=== PATIENT | male | born 1970 | race African-American/Black ===

== ENCOUNTER 2021-07-31 07:42 | Inpatient (IN) | payer MEDICAID, OTHER ==
[~2021-07-31] VITALS: Ht 182.9 cm; Wt 76.8 kg
[2021-07-31 08:15] LABS: Basophils # (auto) 0.1 10 ^3/uL (0-0.2); Eosinophils # (auto) 0.2 10 ^3/uL (0-0.8)
[2021-07-31 08:17] LABS: Eosinophils % (auto) 1.6 % (0.0-7.0); Hematocrit 38.2 % (41.0-53.0); Hemoglobin 12.8 g/dL (13.5-17.5); Lymphocytes # (auto) 1.7 10 ^3/uL (0.4-5.4); Lymphocytes % (auto) 15.6 % (10.0-50.0); Mean Corpuscular Hemoglobin 32.9 pg (28.0-32.0); Mean Corpuscular Hgb Conc. 33.4 g/dL (32.0-36.0); Mean Corpuscular Volume 98.5 fL (80.0-100.0); Monocytes # (auto) 1.2 10 ^3/uL (0-1.3); Monocytes % (auto) 10.7 % (0.0-12.0); Neutrophils # (auto) 7.7 10 ^3/uL (1.6-8.6); Neutrophils % (auto) 71.1 % (37.0-80.0); Red Blood Cells 3.88 10^6/uL (4.5-5.90); Red Cell Distribution Width 15.2 % (11.8-14.3); White Blood Cell 10.8 10^3/uL (4.4-10.8)
[2021-07-31] MEDS ORDERED: FUROSEMIDE 40 MG/4 ML VIAL IV ONE (08:30)
[2021-07-31] MEDS ORDERED: SODIUM CHLORIDE 0.9% 1,000 ML IV ONE (08:30)
[2021-07-31] MEDS ORDERED: SPIRONOLACTONE 25 MG TAB PO ONE (08:30)
[2021-07-31] MEDS ORDERED: ALBUTEROL SULF 2.5 MG/0.5ML(0.5%) NEB SOLN NEB ONE (08:30)
[2021-07-31] MEDS ORDERED: IPRATROPIUM BROM 0.5 MG/2.5ML INH SOL NEB ONE (08:30)
[2021-07-31 08:44] LABS: Albumin 2.9 g/dL (3.4-5.0); Calcium 9.2 mg/dL (8.5-10.1); Potassium 4.7 mmol/L (3.5-5.1)
[2021-07-31] MEDS ORDERED: SPIRONOLACTONE 25 MG TAB ONE (08:46)
[2021-07-31] MEDS ORDERED: FUROSEMIDE 40 MG/4 ML VIAL ONE (08:46)
[2021-07-31 08:48] LABS: Bilirubin, Total 0.3 mg/dL (0.2-1.0); Total Protein 8.4 g/dL (6.4-8.2)
[2021-07-31 08:56] LABS: BUN/Creatinine Ratio 8.2
[2021-07-31 08:56] LABS: Urine Bacteria NONE SEEN /hpf (None Seen); Urine Blood Negative /uL (Negative); Urine Specific Gravity 1.003 (1.001-1.035); Urine WBC <1 /hpf (0 - 3)
[2021-07-31 09:06] LABS: Lactic Acid w/Reflex 2.8 mmol/L (0.4-2.0)
[2021-07-31] MEDS ORDERED: IPRATROPIUM BROM 0.5 MG/2.5ML INH SOL ONE (09:20)
[2021-07-31] MEDS ORDERED: ALBUTEROL SULF 2.5 MG/0.5ML(0.5%) NEB SOLN ONE (09:20)
[2021-07-31] MEDS ORDERED: IOHEXOL 350 MG/ML 100ML IJ ONE (10:09)
[2021-07-31] MEDS ORDERED: MORPHINE SULFATE INJ 2 MG/ml SYRG IV ONE (12:00)
[2021-07-31] MEDS ORDERED: ONDANSETRON HCL 4 MG/2 ML VIAL IV ONE (12:00)
[2021-07-31] MEDS ORDERED: NITROGLYCERIN 0.4 MG SL TAB SL PRN (15:00)
[2021-07-31] MEDS ORDERED: MORPHINE SULFATE INJ 2 MG/ml SYRG IV PRN (15:00)
[2021-07-31] MEDS ORDERED: hydrALAZINE HCL 20 MG/ML VL IV PRN (15:15)
[2021-07-31] MEDS ORDERED: AZITHROMYCIN 500MG/ 250ML 250 ML IV ONE (15:15)
[2021-07-31] MEDS ORDERED: ALBUTEROL SULF 2.5 MG/0.5ML(0.5%) NEB SOLN NEB PRN (15:15)
[2021-07-31 15:41] LABS: Cholesterol 135 mg/dL (< 200); Triglycerides 222 mg/dL (< 150)
[2021-07-31 15:44] LABS: HDL Cholesterol 31 mg/dL (40-59); LDL Cholesterol 79 mg/dL (< 100)
[2021-07-31 16:11] LABS: Alcohol, Urine < 3.0 mg/dL (0-10); Amphetamine Screen, Urine NEGATIVE (NEGATIVE); Barbiturate Scree,Urine NEGATIVE (NEGATIVE); Benzodiazephine Screen, Urine NEGATIVE (NEGATIVE); Cannabinoid Screen, Urine NEGATIVE (NEGATIVE); Cocaine Screen, Urine NEGATIVE (NEGATIVE); Opiate Scree,Urine NEGATIVE (NEGATIVE); Phencyclidine Screen, Urine NEGATIVE (NEGATIVE)
[2021-07-31 17:20] VITALS: BP 123/92
[2021-07-31] MEDS: MORPHINE SULFATE INJ 2 MG/ml SYRG IV PRN (17:56)
[2021-07-31 18:13] VITALS: BP 123/92
[2021-07-31] MEDS ORDERED: DOXY100C2 PO (19:43)
[2021-07-31 22:00] VITALS: BP 122/91
[2021-08-01] MEDS: MORPHINE SULFATE INJ 2 MG/ml SYRG IV PRN ×4 (04:59→23:11)
[2021-08-01 05:00] VITALS: BP 131/90
[2021-08-01 06:08] LABS: Albumin 2.7 g/dL (3.4-5.0); Calcium 9.1 mg/dL (8.5-10.1); Potassium 4.5 mmol/L (3.5-5.1)
[2021-08-01 06:10] LABS: Basophils # (auto) 0 10 ^3/uL (0-0.2); Basophils % (auto) 0.4 % (0.0-2.0); Eosinophils # (auto) 0.2 10 ^3/uL (0-0.8); Monocytes # (auto) 1.3 10 ^3/uL (0-1.3); Nucleated Red Blood Cells % 0.1 %; Red Cell Distribution Width 14.8 % (11.8-14.3); White Blood Cell 10.8 10^3/uL (4.4-10.8)
[2021-08-01 06:12] LABS: BUN/Creatinine Ratio 10.8; Bilirubin, Total 0.6 mg/dL (0.2-1.0); Total Protein 7.7 g/dL (6.4-8.2)
[2021-08-01 06:14] LABS: Eosinophils % (auto) 1.8 % (0.0-7.0); Lymphocytes # (auto) 1.7 10 ^3/uL (0.4-5.4); Lymphocytes % (auto) 15.7 % (10.0-50.0); Monocytes % (auto) 12.1 % (0.0-12.0); Neutrophils # (auto) 7.5 10 ^3/uL (1.6-8.6)
[2021-08-01 06:47] LABS: Red Blood Cells 3.68 10^6/uL (4.5-5.90)
[2021-08-01 06:48] LABS: Hematocrit 35.7 % (41.0-53.0); Hemoglobin 12.7 g/dL (13.5-17.5); Mean Corpuscular Hemoglobin 34.6 pg (28.0-32.0); Mean Corpuscular Hgb Conc. 35.7 g/dL (32.0-36.0); Mean Corpuscular Volume 97.1 fL (80.0-100.0)
[2021-08-01 08:00] VITALS: BP 108/88
[2021-08-01] MEDS: AZITHROMYCIN 500MG/ 250ML 250 ML IV SCH (09:54)
[2021-08-01 12:00] VITALS: BP 125/77
[2021-08-01] MEDS: ONDANSETRON HCL 4 MG/2 ML VIAL IV PRN ×2 (14:47→22:53)
[2021-08-01 16:00] VITALS: BP 114/88
[2021-08-01 22:00] VITALS: BP 122/87
[2021-08-01] MEDS: methylPREDNISolone SOD SUCC 40 MG/ML VL IV SCH (22:41)
[2021-08-02] MEDS: MORPHINE SULFATE INJ 2 MG/ml SYRG IV PRN (03:12)
[2021-08-02 05:00] VITALS: BP 103/80
[2021-08-02 05:10] LABS: Basophils # (auto) 0.2 10 ^3/uL (0-0.2); Eosinophils # (auto) 0 10 ^3/uL (0-0.8); Eosinophils % (auto) 0.2 % (0.0-7.0); Hemoglobin 13.4 g/dL (13.5-17.5); Lymphocytes # (auto) 0.9 10 ^3/uL (0.4-5.4); Lymphocytes % (auto) 7.8 % (10.0-50.0); Mean Corpuscular Hemoglobin 33.7 pg (28.0-32.0); Mean Corpuscular Hgb Conc. 34.5 g/dL (32.0-36.0); Mean Corpuscular Volume 97.6 fL (80.0-100.0); Monocytes # (auto) 0.3 10 ^3/uL (0-1.3); Monocytes % (auto) 2.7 % (0.0-12.0); Neutrophils # (auto) 10.4 10 ^3/uL (1.6-8.6); Neutrophils % (auto) 87.3 % (37.0-80.0); Red Blood Cells 3.99 10^6/uL (4.5-5.90); Red Cell Distribution Width 15.2 % (11.8-14.3); White Blood Cell 11.9 10^3/uL (4.4-10.8)
[2021-08-02 05:28] LABS: BUN/Creatinine Ratio 12.7; Calcium 9.5 mg/dL (8.5-10.1)
[2021-08-02 08:00] VITALS: BP 111/62
[2021-08-02 09:00] VITALS: BP 110/81
[2021-08-02 09:22] LABS: INR 1.1 (0.9-1.15); Partial Thromboplastin Time 27.8 sec (23.6-33.0)
[2021-08-02] MEDS: AZITHROMYCIN 500MG/ 250ML 250 ML IV SCH (11:01)
[2021-08-02] MEDS: methylPREDNISolone SOD SUCC 40 MG/ML VL IV SCH ×2 (11:01→22:25)
[2021-08-02 13:00] VITALS: BP 111/62
[2021-08-02 20:00] VITALS: BP 111/62
[2021-08-02 22:00] VITALS: BP 143/85
[2021-08-03 05:00] VITALS: BP 106/73
[2021-08-03 05:09] LABS: Basophils # (auto) 0.1 10 ^3/uL (0-0.2); Basophils % (auto) 0.4 % (0.0-2.0); Eosinophils # (auto) 0 10 ^3/uL (0-0.8); Eosinophils % (auto) 0.1 % (0.0-7.0); Hematocrit 38.4 % (41.0-53.0); Lymphocytes % (auto) 7.7 % (10.0-50.0); Mean Corpuscular Hemoglobin 33.4 pg (28.0-32.0); Mean Corpuscular Hgb Conc. 33.9 g/dL (32.0-36.0); Mean Corpuscular Volume 98.4 fL (80.0-100.0); Monocytes # (auto) 0.8 10 ^3/uL (0-1.3); Monocytes % (auto) 6.1 % (0.0-12.0); Neutrophils # (auto) 11.6 10 ^3/uL (1.6-8.6); Neutrophils % (auto) 85.7 % (37.0-80.0); Nucleated Red Blood Cells % 0.1 %; White Blood Cell 13.6 10^3/uL (4.4-10.8)
[2021-08-03 05:16] LABS: BUN/Creatinine Ratio 14.4; Calcium 9.6 mg/dL (8.5-10.1)
[2021-08-03 09:00] VITALS: BP 146/95
[2021-08-03] MEDS: methylPREDNISolone SOD SUCC 40 MG/ML VL IV SCH ×2 (10:20→21:21)
[2021-08-03] MEDS: AZITHROMYCIN 500MG/ 250ML 250 ML IV SCH (10:21)
[2021-08-03 13:00] VITALS: BP 120/80
[2021-08-03] MEDS ORDERED: MIDAZOLAM HCL 2MG/2ML 2ml VIAL (1mg/ml) ONE (15:52)
[2021-08-03] MEDS ORDERED: fentaNYL CITRATE 100 MCG/2 ML VL ONE (15:52)
[2021-08-03] MEDS ORDERED: LIDOCAINE 2%HCL (LOCAL ANESTH.) INJ 10ml MDV ONE (15:53)
[2021-08-03] MEDS ORDERED: ceFAZolin 1GM/50ML 50 ML IV ONE (16:32)
[2021-08-03 20:00] VITALS: BP 127/99
[2021-08-03] MEDS: ceFAZolin 1GM/50ML 50 ML IV SCH (21:21)
[2021-08-03 22:00] VITALS: BP 111/79
[2021-08-03 23:00] VITALS: BP 123/87
[2021-08-04] VITALS (22 sets, daily range): BP systolic 99–163; BP diastolic 68–98
[2021-08-04 05:03] LABS: Basophils # (auto) 0.2 10 ^3/uL (0-0.2); Eosinophils # (auto) 0 10 ^3/uL (0-0.8); Hemoglobin 15.5 g/dL (13.5-17.5); Lymphocytes # (auto) 0.9 10 ^3/uL (0.4-5.4); Lymphocytes % (auto) 5.6 % (10.0-50.0); Mean Corpuscular Hemoglobin 33.6 pg (28.0-32.0); Mean Corpuscular Hgb Conc. 34.5 g/dL (32.0-36.0); Mean Corpuscular Volume 97.3 fL (80.0-100.0); Monocytes % (auto) 5.9 % (0.0-12.0); Neutrophils # (auto) 14.3 10 ^3/uL (1.6-8.6); Neutrophils % (auto) 87.5 % (37.0-80.0); Red Blood Cells 4.62 10^6/uL (4.5-5.90); Red Cell Distribution Width 14.7 % (11.8-14.3); White Blood Cell 16.3 10^3/uL (4.4-10.8)
[2021-08-04 05:16] LABS: BUN/Creatinine Ratio 17.6; Calcium 9.6 mg/dL (8.5-10.1); Potassium 4.9 mmol/L (3.5-5.1)
[2021-08-04] MEDS: ceFAZolin 1GM/50ML 50 ML IV SCH ×3 (05:55→22:03)
[2021-08-04] MEDS: MORPHINE SULFATE INJ 2 MG/ml SYRG IV PRN ×3 (08:55→20:02)
[2021-08-04] MEDS ORDERED: ENOXAPARIN SOD 40 MG/0.4 ML SYRINGE SC ONE (10:15)
[2021-08-04] MEDS: methylPREDNISolone SOD SUCC 40 MG/ML VL IV SCH ×2 (10:20→22:02)
[2021-08-04] MEDS: AZITHROMYCIN 500MG/ 250ML 250 ML IV SCH (10:20)
[2021-08-04] MEDS: ONDANSETRON HCL 4 MG/2 ML VIAL IV PRN (20:02)
[2021-08-05] VITALS (17 sets, daily range): BP systolic 114–195; BP diastolic 65–125
[2021-08-05] MEDS: MORPHINE SULFATE INJ 2 MG/ml SYRG IV PRN ×2 (02:48→08:49)
[2021-08-05 04:57] LABS: Basophils # (auto) 0 10 ^3/uL (0-0.2); Basophils % (auto) 0.2 % (0.0-2.0); Eosinophils # (auto) 0 10 ^3/uL (0-0.8); Hematocrit 46.2 % (41.0-53.0); Hemoglobin 15.6 g/dL (13.5-17.5); Lymphocytes # (auto) 1.2 10 ^3/uL (0.4-5.4); Lymphocytes % (auto) 9.3 % (10.0-50.0); Mean Corpuscular Hemoglobin 33.1 pg (28.0-32.0); Mean Corpuscular Hgb Conc. 33.7 g/dL (32.0-36.0); Mean Corpuscular Volume 98.2 fL (80.0-100.0); Monocytes # (auto) 0.9 10 ^3/uL (0-1.3); Neutrophils # (auto) 10.4 10 ^3/uL (1.6-8.6); Neutrophils % (auto) 83.5 % (37.0-80.0); Nucleated Red Blood Cells % 0.2 %; Red Blood Cells 4.71 10^6/uL (4.5-5.90); Red Cell Distribution Width 14.6 % (11.8-14.3); White Blood Cell 12.4 10^3/uL (4.4-10.8)
[2021-08-05 05:09] LABS: BUN/Creatinine Ratio 19.2; Calcium 9.1 mg/dL (8.5-10.1)
[2021-08-05] MEDS: ceFAZolin 1GM/50ML 50 ML IV SCH ×3 (05:55→21:49)
[2021-08-05] MEDS: AZITHROMYCIN 500MG/ 250ML 250 ML IV SCH (10:23)
[2021-08-05] MEDS: methylPREDNISolone SOD SUCC 40 MG/ML VL IV SCH ×2 (10:23→21:49)
[2021-08-05] MEDS: ENOXAPARIN SOD 40 MG/0.4 ML SYRINGE SC SCH (15:12)
[2021-08-06] VITALS (19 sets, daily range): BP systolic 112–156; BP diastolic 63–101
[2021-08-06] MEDS: ceFAZolin 1GM/50ML 50 ML IV SCH ×3 (05:33→22:07)
[2021-08-06 06:06] LABS: BUN/Creatinine Ratio 17.6; Calcium 9.2 mg/dL (8.5-10.1); Potassium 4.8 mmol/L (3.5-5.1)
[2021-08-06 06:24] LABS: Hematocrit 45.1 % (41.0-53.0); Hemoglobin 15.2 g/dL (13.5-17.5); Mean Corpuscular Hgb Conc. 33.6 g/dL (32.0-36.0); Mean Corpuscular Volume 98.1 fL (80.0-100.0); Red Cell Distribution Width 14.4 % (11.8-14.3); White Blood Cell 14.7 10^3/uL (4.4-10.8)
[2021-08-06 06:26] LABS: Basophils % (manual) 0 (0.0-2.0); Blast Cells 0; Eosinophils % (manual) 0 (0-7); Myelocytes % 0; Promyelocytes % 0; Reactive Lymphocytes 0
[2021-08-06 08:38] LABS: Band Neutrophils % (manual) 2; Lymphocytes % (manual) 14 (10.0-50.0); Metamyelocytes % 2; Monocytes % (manual) 5 (0-12)
[2021-08-06] MEDS: methylPREDNISolone SOD SUCC 40 MG/ML VL IV SCH ×2 (09:48→22:07)
[2021-08-06] MEDS: AZITHROMYCIN 500MG/ 250ML 250 ML IV SCH (09:48)
[2021-08-06] MEDS: ENOXAPARIN SOD 40 MG/0.4 ML SYRINGE SC SCH (09:48)
[2021-08-06] MEDS ORDERED: PRED20TA2 PO (10:06)
[2021-08-06] MEDS: ONDANSETRON HCL 4 MG/2 ML VIAL IV PRN (11:04)
[2021-08-07 05:00] VITALS: BP 114/86
[2021-08-07] MEDS: ceFAZolin 1GM/50ML 50 ML IV SCH (06:31)
[2021-08-07] MEDS: AZITHROMYCIN 500MG/ 250ML 250 ML IV SCH (08:22)
[2021-08-07] MEDS: methylPREDNISolone SOD SUCC 40 MG/ML VL IV SCH (08:23)
[2021-08-07] MEDS: ENOXAPARIN SOD 40 MG/0.4 ML SYRINGE SC SCH (08:24)
[2021-08-07 09:00] VITALS: BP 126/85
[2021-08-07] MEDS: ONDANSETRON HCL 4 MG/2 ML VIAL IV PRN (10:16)
[2021-08-07 12:53] VITALS: BP 128/91
[2021-08-07 13:01] VITALS: BP 126/85
== END 2021-08-07 13:35 | disposition home or self-care (01) | DRG 133 ==
LOC: ER 07:42 → TELE 14:58 → TELE-CENTR 17:34 → DOU IN ICU 08-03 19:45 → ICU CENTRL 08-03 20:14 → DOU IN ICU 08-04 21:00 → TELE-WESTW 08-06 18:35
PROVIDERS: ADMIT Registered Nurse; ATTEND Internal Medicine Pulmonary Disease
PROC: 0W9D3ZX Drainage of Pericardial Cavity, Percutaneous Approach, Diagnostic (ICD-10-PCS; principal; 2021-08-03)
PROC: 05HB33Z Insertion of Infusion Device into Right Basilic Vein, Percutaneous Approach (ICD-10-PCS; 2021-08-04)
PROC: B54MZZA Ultrasonography of Right Upper Extremity Veins, Guidance (ICD-10-PCS; 2021-08-04)
DX: J96.01 Acute respiratory failure with hypoxia (principal); I31.4 Cardiac tamponade; I31.3 Pericardial effusion (noninflammatory); E44.1 Mild protein-calorie malnutrition; I82.619 Acute embolism and thrombosis of superficial veins of unspecified upper extremity; Z20.822 Contact with and (suspected) exposure to COVID-19; D64.9 Anemia, unspecified; F12.90 Cannabis use, unspecified, uncomplicated; F41.9 Anxiety disorder, unspecified; J40 Bronchitis, not specified as acute or chronic; J98.01 Acute bronchospasm; J98.11 Atelectasis; N18.2 Chronic kidney disease, stage 2 (mild); F17.210 Nicotine dependence, cigarettes, uncomplicated; J43.9 Emphysema, unspecified; I12.9 Hypertensive chronic kidney disease with stage 1 through stage 4 chronic kidney disease, or unspecified chronic kidney disease; Z71.6 Tobacco abuse counseling; Z68.22 Body mass index [BMI] 22.0-22.9, adult
CPT/HCPCS: 33016; 36415; 71045; 71275; 80048; 80053; 80061; 80307; 81001; 83036; 83605; 83735; 83880; 84443; 84484; 85007; 85025; 85027; 85379; 85610; 85652; 85730; 86141; 87040; 87081; 87205; 89051; 89060; 93005; 93306; 93971; 94640; 96361; 96365; 96375; 99152; 99153; G0378; J0690; J2001; J2250; J2405

== ENCOUNTER 2021-08-14 09:58 | Inpatient (IN) | payer MEDICAID ==
[~2021-08-14] VITALS: Ht 182.9 cm; Wt 82.5 kg
[~2021-08-14 09:58] MED LIST: PRED20TA2 PO
[2021-08-14] MEDS ORDERED: HYDROcodone-ACET 5/325MG TAB PO ONE (11:00)
[2021-08-14] MEDS ORDERED: ENOXAPARIN SOD 80 MG/0.8ML SYRINGE SC ONE (12:30)
[2021-08-14 13:48] LABS: BUN/Creatinine Ratio 18.5; Basophils # (auto) 0.1 10 ^3/uL (0-0.2); Basophils % (auto) 0.4 % (0.0-2.0); Calcium 8.6 mg/dL (8.5-10.1); Eosinophils # (auto) 0.1 10 ^3/uL (0-0.8); Eosinophils % (auto) 0.7 % (0.0-7.0); Hematocrit 42.1 % (41.0-53.0); Hemoglobin 14.5 g/dL (13.5-17.5); Lymphocytes % (auto) 15.1 % (10.0-50.0); Mean Corpuscular Hemoglobin 33.7 pg (28.0-32.0); Mean Corpuscular Hgb Conc. 34.4 g/dL (32.0-36.0); Mean Corpuscular Volume 98.1 fL (80.0-100.0); Monocytes % (auto) 7.7 % (0.0-12.0); Neutrophils # (auto) 10.3 10 ^3/uL (1.6-8.6); Neutrophils % (auto) 76.1 % (37.0-80.0); Nucleated Red Blood Cells % 0.1 %; Potassium 4.3 mmol/L (3.5-5.1); Red Blood Cells 4.29 10^6/uL (4.5-5.90); White Blood Cell 13.5 10^3/uL (4.4-10.8)
[2021-08-14 14:56] LABS: INR 1.07 (0.9-1.15)
[2021-08-14] MEDS ORDERED: cefTRIAXone 1GM/50ML D5W 50 ML IV ONE (15:15)
[2021-08-14] MEDS ORDERED: ONDANSETRON HCL 4 MG/2 ML VIAL IV PRN (15:15)
[2021-08-14 15:39] LABS: Cholesterol 284 mg/dL (< 200)
[2021-08-14 15:42] LABS: HDL Cholesterol 51 mg/dL (40-59); Triglycerides 459 mg/dL (< 150)
[2021-08-14 19:00] LABS: Urine WBC None Seen /hpf (0 - 3)
[2021-08-14 19:22] LABS: Urine Bacteria NONE SEEN /hpf (None Seen); Urine Blood Negative /uL (Negative); Urine Specific Gravity 1.004 (1.001-1.035)
[2021-08-14 19:50] LABS: Amphetamine Screen, Urine NEGATIVE (NEGATIVE); Barbiturate Scree,Urine NEGATIVE (NEGATIVE); Benzodiazephine Screen, Urine NEGATIVE (NEGATIVE); Cannabinoid Screen, Urine NEGATIVE (NEGATIVE); Cocaine Screen, Urine NEGATIVE (NEGATIVE); Opiate Scree,Urine NEGATIVE (NEGATIVE); Phencyclidine Screen, Urine NEGATIVE (NEGATIVE)
[2021-08-14] MEDS: MORPHINE SULFATE INJ 2 MG/ml SYRG IV PRN (21:21)
[2021-08-15] VITALS (7 sets, daily range): BP systolic 104–121; BP diastolic 70–86
[2021-08-15] MEDS: MORPHINE SULFATE INJ 2 MG/ml SYRG IV PRN ×4 (01:11→15:00)
[2021-08-15] MEDS: ENOXAPARIN SOD 100 MG/1 ML SYRINGE SC SCH ×3 (01:12→21:45)
[2021-08-15] MEDS: cefTRIAXone 1GM/50ML D5W 50 ML IV SCH (09:29)
[2021-08-15 09:52] LABS: Basophils # (auto) 0.3 10 ^3/uL (0-0.2); Eosinophils # (auto) 0.1 10 ^3/uL (0-0.8); Eosinophils % (auto) 0.6 % (0.0-7.0); Hematocrit 41.6 % (41.0-53.0); Hemoglobin 14.1 g/dL (13.5-17.5); Lymphocytes # (auto) 2.1 10 ^3/uL (0.4-5.4); Mean Corpuscular Hemoglobin 33.5 pg (28.0-32.0); Mean Corpuscular Volume 98.6 fL (80.0-100.0); Monocytes # (auto) 0.8 10 ^3/uL (0-1.3); Monocytes % (auto) 6.9 % (0.0-12.0); Neutrophils # (auto) 7.7 10 ^3/uL (1.6-8.6); Neutrophils % (auto) 70.5 % (37.0-80.0); Nucleated Red Blood Cells % 0.4 %; Red Blood Cells 4.22 10^6/uL (4.5-5.90)
[2021-08-15 10:13] LABS: Albumin 2.6 g/dL (3.4-5.0); Calcium 8.7 mg/dL (8.5-10.1); Potassium 3.9 mmol/L (3.5-5.1)
[2021-08-15 10:16] LABS: BUN/Creatinine Ratio 13.1; Bilirubin, Total 0.5 mg/dL (0.2-1.0); Total Protein 7.1 g/dL (6.4-8.2)
[2021-08-15] MEDS ORDERED: HYDROcodone-ACET 5/325MG TAB PO PRN (15:15)
[2021-08-16] MEDS: MORPHINE SULFATE INJ 2 MG/ml SYRG IV PRN ×4 (00:20→19:58)
[2021-08-16 05:00] VITALS: BP 117/68
[2021-08-16 09:00] VITALS: BP 93/69
[2021-08-16] MEDS: ENOXAPARIN SOD 100 MG/1 ML SYRINGE SC SCH ×2 (09:15→17:45)
[2021-08-16] MEDS: cefTRIAXone 1GM/50ML D5W 50 ML IV SCH (09:19)
[2021-08-16] MEDS: PANTOPRAZOLE 40 MG TAB PO SCH (09:19)
[2021-08-16 13:46] VITALS: BP 99/62
[2021-08-16] MEDS: HYDROcodone-ACET 10/325MG TAB PO PRN ×2 (15:25→19:51)
[2021-08-16 17:31] VITALS: BP 111/83
[2021-08-16 21:45] VITALS: BP 117/83
[2021-08-17] MEDS: MORPHINE SULFATE INJ 2 MG/ml SYRG IV PRN ×3 (01:15→10:46)
[2021-08-17 04:59] VITALS: BP 128/87
[2021-08-17 05:47] LABS: Basophils # (auto) 0 10 ^3/uL (0-0.2); Basophils % (auto) 0.4 % (0.0-2.0); Eosinophils # (auto) 0.1 10 ^3/uL (0-0.8); Eosinophils % (auto) 1.2 % (0.0-7.0); Hematocrit 40.1 % (41.0-53.0); Hemoglobin 13.8 g/dL (13.5-17.5); Lymphocytes # (auto) 1.7 10 ^3/uL (0.4-5.4); Mean Corpuscular Hemoglobin 33.9 pg (28.0-32.0); Mean Corpuscular Hgb Conc. 34.5 g/dL (32.0-36.0); Mean Corpuscular Volume 98.2 fL (80.0-100.0); Monocytes # (auto) 0.8 10 ^3/uL (0-1.3); Monocytes % (auto) 8.5 % (0.0-12.0); Neutrophils # (auto) 6.8 10 ^3/uL (1.6-8.6); Neutrophils % (auto) 71.9 % (37.0-80.0); Nucleated Red Blood Cells % 0.1 %; Red Blood Cells 4.08 10^6/uL (4.5-5.90); Red Cell Distribution Width 15.2 % (11.8-14.3); White Blood Cell 9.5 10^3/uL (4.4-10.8)
[2021-08-17 05:54] LABS: Potassium 4.6 mmol/L (3.5-5.1)
[2021-08-17 08:00] VITALS: BP 112/90
[2021-08-17] MEDS: cefTRIAXone 1GM/50ML D5W 50 ML IV SCH (09:02)
[2021-08-17] MEDS: HYDROcodone-ACET 10/325MG TAB PO PRN ×3 (09:02→19:58)
[2021-08-17] MEDS: PANTOPRAZOLE 40 MG TAB PO SCH (09:02)
[2021-08-17 12:00] VITALS: BP 125/75
[2021-08-17 16:00] VITALS: BP 117/87
[2021-08-17 21:11] VITALS: BP 134/92
[2021-08-17] MEDS: ENOXAPARIN SOD 100 MG/1 ML SYRINGE SC SCH (21:31)
[2021-08-18] MEDS: HYDROcodone-ACET 10/325MG TAB PO PRN ×2 (04:37→10:22)
[2021-08-18 04:43] VITALS: BP 128/73
[2021-08-18 05:20] LABS: Basophils # (auto) 0.1 10 ^3/uL (0-0.2); Eosinophils # (auto) 0.2 10 ^3/uL (0-0.8); Hemoglobin 14.5 g/dL (13.5-17.5); Mean Corpuscular Hgb Conc. 34.8 g/dL (32.0-36.0); Monocytes # (auto) 0.7 10 ^3/uL (0-1.3); Nucleated Red Blood Cells % 0.1 %
[2021-08-18 05:22] LABS: Basophils % (auto) 0.9 % (0.0-2.0); Eosinophils % (auto) 2.1 % (0.0-7.0); Hematocrit 41.7 % (41.0-53.0); Lymphocytes # (auto) 1.7 10 ^3/uL (0.4-5.4); Lymphocytes % (auto) 19.7 % (10.0-50.0); Mean Corpuscular Volume 97.6 fL (80.0-100.0); Monocytes % (auto) 8.4 % (0.0-12.0); Neutrophils # (auto) 6.1 10 ^3/uL (1.6-8.6); Neutrophils % (auto) 68.9 % (37.0-80.0); Red Blood Cells 4.27 10^6/uL (4.5-5.90); Red Cell Distribution Width 15.1 % (11.8-14.3); White Blood Cell 8.8 10^3/uL (4.4-10.8)
[2021-08-18 05:39] LABS: Anion Gap 5 (5-15); Blood Urea Nitrogen 15 mg/dL (7-18); Calcium 9.3 mg/dL (8.5-10.1); Carbon Dioxide 25 mmol/L (21-32); Chloride 108 mmol/L (98-107); GFR African American 94 mL/min; GFR Non-African American 78 mL/min; Glucose 109 mg/dL (74-106); Sodium 138 mmol/L (136-145)
[2021-08-18 08:00] VITALS: BP 99/71
[2021-08-18] MEDS ORDERED: APIX5TAB PO (09:21)
[2021-08-18] MEDS ORDERED: APIXABAN 5 MG TAB PO ONE (09:45)
[2021-08-18] MEDS: PANTOPRAZOLE 40 MG TAB PO SCH (10:22)
[2021-08-18 12:00] VITALS: BP 109/66
== END 2021-08-18 15:00 | disposition home or self-care (01) | DRG 197 ==
LOC: ER 09:58 → OVERFLOW 15:15 → EAST 08-15 01:55
PROVIDERS: ADMIT Registered Nurse; ATTEND Internal Medicine Pulmonary Disease
DX: I82.412 Acute embolism and thrombosis of left femoral vein (principal); I31.3 Pericardial effusion (noninflammatory); E46 Unspecified protein-calorie malnutrition; Z68.43 Body mass index [BMI] 50.0-59.9, adult; D72.829 Elevated white blood cell count, unspecified; F12.10 Cannabis abuse, uncomplicated; F17.210 Nicotine dependence, cigarettes, uncomplicated; E66.9 Obesity, unspecified; R91.8 Other nonspecific abnormal finding of lung field; J44.9 Chronic obstructive pulmonary disease, unspecified; Z20.822 Contact with and (suspected) exposure to COVID-19; F41.9 Anxiety disorder, unspecified; I10 Essential (primary) hypertension; Z79.01 Long term (current) use of anticoagulants; Z85.118 Personal history of other malignant neoplasm of bronchus and lung
CPT/HCPCS: 36415; 71045; 80048; 80053; 80061; 80307; 81001; 83880; 85025; 85610; 87040; 87086; 93971; 96365; 96372; G0378; J0696

== ENCOUNTER 2021-09-05 17:09 | Inpatient (IN) | payer MEDICAID ==
[~2021-09-05] VITALS: Ht 182.9 cm; Wt 79.0 kg
[~2021-09-05 17:09] MED LIST changes: +APIX5TAB PO; -PRED20TA2 PO
[2021-09-05 18:43] LABS: Basophils # (auto) 0.1 10 ^3/uL (0-0.2); Basophils % (auto) 1.2 % (0.0-2.0); Eosinophils # (auto) 0.1 10 ^3/uL (0-0.8); Eosinophils % (auto) 1.8 % (0.0-7.0); Hematocrit 46.7 % (41.0-53.0); Hemoglobin 15.6 g/dL (13.5-17.5); Lymphocytes # (auto) 2.1 10 ^3/uL (0.4-5.4); Lymphocytes % (auto) 28.8 % (10.0-50.0); Mean Corpuscular Hemoglobin 32.3 pg (28.0-32.0); Mean Corpuscular Hgb Conc. 33.4 g/dL (32.0-36.0); Mean Corpuscular Volume 96.7 fL (80.0-100.0); Monocytes # (auto) 0.8 10 ^3/uL (0-1.3); Monocytes % (auto) 11.5 % (0.0-12.0); Neutrophils # (auto) 4.2 10 ^3/uL (1.6-8.6); Neutrophils % (auto) 56.7 % (37.0-80.0); Nucleated Red Blood Cells % 0.3 %; Red Blood Cells 4.82 10^6/uL (4.5-5.90); Red Cell Distribution Width 15.1 % (11.8-14.3); White Blood Cell 7.4 10^3/uL (4.4-10.8)
[2021-09-05 19:00] LABS: Albumin 3.5 g/dL (3.4-5.0); Calcium 9.3 mg/dL (8.5-10.1); Potassium 4.6 mmol/L (3.5-5.1)
[2021-09-05 19:05] LABS: BUN/Creatinine Ratio 7.6; Bilirubin, Total 0.6 mg/dL (0.2-1.0); Total Protein 8.4 g/dL (6.4-8.2)
[2021-09-05] MEDS ORDERED: ONDANSETRON HCL 4 MG/2 ML VIAL IV PRN (21:00)
[2021-09-05] MEDS ORDERED: PANTOPRAZOLE 40 MG/10 ML VIAL INJ IV ONE (21:00)
[2021-09-05 21:18] LABS: Urine Bacteria NONE SEEN /hpf (None Seen); Urine Blood Negative /uL (Negative); Urine Specific Gravity 1.009 (1.001-1.035); Urine WBC 2 /hpf (0 - 3)
[2021-09-05] MEDS: SODIUM CHLORIDE 0.9% 1,000 ML IV SCH (21:30)
[2021-09-05 22:45] LABS: Hematocrit 44.6 % (41.0-53.0); Hemoglobin 15.1 g/dL (13.5-17.5)
[2021-09-05 23:47] LABS: INR 1.05 (0.9-1.15); Partial Thromboplastin Time 33.3 sec (23.6-33.0)
[2021-09-06 02:37] VITALS: BP 120/75
[2021-09-06 05:00] VITALS: BP 102/69
[2021-09-06 06:49] LABS: Basophils # (auto) 0.1 10 ^3/uL (0-0.2); Basophils % (auto) 0.9 % (0.0-2.0); Eosinophils # (auto) 0.1 10 ^3/uL (0-0.8); Eosinophils % (auto) 1.8 % (0.0-7.0); Hematocrit 41.8 % (41.0-53.0); Lymphocytes # (auto) 2.3 10 ^3/uL (0.4-5.4); Lymphocytes % (auto) 31.9 % (10.0-50.0); Mean Corpuscular Hemoglobin 32.3 pg (28.0-32.0); Mean Corpuscular Hgb Conc. 33.4 g/dL (32.0-36.0); Mean Corpuscular Volume 96.7 fL (80.0-100.0); Monocytes # (auto) 0.9 10 ^3/uL (0-1.3); Monocytes % (auto) 13.2 % (0.0-12.0); Neutrophils # (auto) 3.7 10 ^3/uL (1.6-8.6); Neutrophils % (auto) 52.2 % (37.0-80.0); Nucleated Red Blood Cells % 0.1 %; Red Blood Cells 4.32 10^6/uL (4.5-5.90); Red Cell Distribution Width 14.9 % (11.8-14.3); White Blood Cell 7.1 10^3/uL (4.4-10.8)
[2021-09-06 07:05] LABS: Albumin 3.1 g/dL (3.4-5.0); Calcium 8.7 mg/dL (8.5-10.1); Potassium 4.1 mmol/L (3.5-5.1)
[2021-09-06 07:08] LABS: Bilirubin, Total 0.5 mg/dL (0.2-1.0); Total Protein 7.5 g/dL (6.4-8.2)
[2021-09-06 09:00] VITALS: BP 121/77
[2021-09-06] MEDS ORDERED: PANTOPRAZOLE 40 MG/10 ML VIAL INJ IV SCH (10:00)
[2021-09-06] MEDS: SODIUM CHLORIDE 0.9% 1,000 ML IV SCH (11:20)
[2021-09-06 13:00] VITALS: BP 124/74
[2021-09-06 15:00] VITALS: BP 125/71
== END 2021-09-06 13:55 | disposition left against medical advice (07) | DRG 253 ==
LOC: ER 17:09 → TELE 20:58 → TELE-WESTW 09-06 02:17
PROVIDERS: ADMIT Nurse Practitioner; ATTEND Internal Medicine Pulmonary Disease
DX: K92.2 Gastrointestinal hemorrhage, unspecified (principal); I31.3 Pericardial effusion (noninflammatory); C34.90 Malignant neoplasm of unspecified part of unspecified bronchus or lung; I10 Essential (primary) hypertension; J44.9 Chronic obstructive pulmonary disease, unspecified; Z20.822 Contact with and (suspected) exposure to COVID-19; Z53.29 Procedure and treatment not carried out because of patient's decision for other reasons; Z79.01 Long term (current) use of anticoagulants; Z85.118 Personal history of other malignant neoplasm of bronchus and lung; Z86.711 Personal history of pulmonary embolism; Z86.718 Personal history of other venous thrombosis and embolism; Z87.891 Personal history of nicotine dependence
CPT/HCPCS: 36415; 80053; 81001; 85014; 85018; 85025; 85610; 85730; 86850; 86900; 86901; 87081; 93005; 93886; 96374; C9113; G0378

== ENCOUNTER 2021-09-06 18:01 | Inpatient (IN) | payer MEDICAID ==
[~2021-09-06] VITALS: Ht 182.9 cm; Wt 80.0 kg
[2021-09-06] MEDS ORDERED: SODIUM CHLORIDE 0.9% 500 ML IV ONE (19:00)
[2021-09-06 19:18] LABS: Basophils # (auto) 0.1 10 ^3/uL (0-0.2); Basophils % (auto) 1.3 % (0.0-2.0); Eosinophils # (auto) 0.1 10 ^3/uL (0-0.8); Eosinophils % (auto) 1.6 % (0.0-7.0); Hematocrit 41.9 % (41.0-53.0); Hemoglobin 13.8 g/dL (13.5-17.5); Lymphocytes # (auto) 1.7 10 ^3/uL (0.4-5.4); Lymphocytes % (auto) 25.6 % (10.0-50.0); Mean Corpuscular Hemoglobin 31.9 pg (28.0-32.0); Mean Corpuscular Volume 96.7 fL (80.0-100.0); Monocytes # (auto) 0.7 10 ^3/uL (0-1.3); Monocytes % (auto) 11.1 % (0.0-12.0); Neutrophils # (auto) 4.1 10 ^3/uL (1.6-8.6); Neutrophils % (auto) 60.4 % (37.0-80.0); Nucleated Red Blood Cells % 0.1 %; Red Blood Cells 4.33 10^6/uL (4.5-5.90); Red Cell Distribution Width 15.1 % (11.8-14.3); White Blood Cell 6.7 10^3/uL (4.4-10.8)
[2021-09-06 19:32] LABS: INR 1.05 (0.9-1.15); Partial Thromboplastin Time 30.7 sec (23.6-33.0)
[2021-09-06 19:48] LABS: Albumin 3.2 g/dL (3.4-5.0); BUN/Creatinine Ratio 11.9; Calcium 8.9 mg/dL (8.5-10.1); Potassium 4.2 mmol/L (3.5-5.1)
[2021-09-06 19:53] LABS: Bilirubin, Total 0.5 mg/dL (0.2-1.0); Total Protein 7.7 g/dL (6.4-8.2)
[2021-09-06] MEDS ORDERED: ONDANSETRON HCL 4 MG/2 ML VIAL IV PRN (22:00)
[2021-09-06] MEDS ORDERED: PANTOPRAZOLE 40 MG/10 ML VIAL INJ IV ONE (22:00)
[2021-09-06 23:15] VITALS: BP 99/65
[2021-09-06] MEDS: D5W/SOD CHLO 0.9% 1,000 ML IV SCH (23:30)
[2021-09-07 05:00] VITALS: BP 109/82
[2021-09-07 05:41] LABS: Basophils # (auto) 0 10 ^3/uL (0-0.2); Basophils % (auto) 0.5 % (0.0-2.0); Eosinophils # (auto) 0.1 10 ^3/uL (0-0.8); Eosinophils % (auto) 1.9 % (0.0-7.0); Hematocrit 41.2 % (41.0-53.0); Hemoglobin 14.1 g/dL (13.5-17.5); Lymphocytes # (auto) 1.9 10 ^3/uL (0.4-5.4); Lymphocytes % (auto) 26.6 % (10.0-50.0); Mean Corpuscular Hemoglobin 33.1 pg (28.0-32.0); Mean Corpuscular Hgb Conc. 34.1 g/dL (32.0-36.0); Mean Corpuscular Volume 97.2 fL (80.0-100.0); Monocytes # (auto) 0.8 10 ^3/uL (0-1.3); Neutrophils # (auto) 4.2 10 ^3/uL (1.6-8.6); Nucleated Red Blood Cells % 0.1 %; Red Blood Cells 4.24 10^6/uL (4.5-5.90); White Blood Cell 7.1 10^3/uL (4.4-10.8)
[2021-09-07 05:50] LABS: Albumin 3.2 g/dL (3.4-5.0); Calcium 9.2 mg/dL (8.5-10.1); Potassium 4.6 mmol/L (3.5-5.1)
[2021-09-07 05:53] LABS: BUN/Creatinine Ratio 10.7; Bilirubin, Total 0.4 mg/dL (0.2-1.0); Total Protein 7.7 g/dL (6.4-8.2)
[2021-09-07 08:30] VITALS: BP 130/96
[2021-09-07] MEDS: PANTOPRAZOLE 40 MG/10 ML VIAL INJ IV SCH (08:54)
[2021-09-07 09:00] VITALS: BP 130/96
[2021-09-07] MEDS: D5W/SOD CHLO 0.9% 1,000 ML IV SCH (11:30)
[2021-09-07 13:00] VITALS: BP 99/79
[2021-09-07 17:48] VITALS: BP 124/75
[2021-09-07] MEDS: SUCRALFATE 1 GM TAB PO SCH (22:37)
[2021-09-08] MEDS ORDERED: HYDROcodone-ACET 7.5/325MG TAB PO ONE (02:45)
[2021-09-08] MEDS: D5W/SOD CHLO 0.9% 1,000 ML IV SCH ×2 (03:25→13:25)
[2021-09-08 04:43] VITALS: BP 129/81
[2021-09-08] MEDS: SUCRALFATE 1 GM TAB PO SCH ×4 (06:43→22:01)
[2021-09-08 07:30] VITALS: BP 107/77
[2021-09-08 09:00] VITALS: BP 107/77
[2021-09-08] MEDS: PANTOPRAZOLE 40 MG/10 ML VIAL INJ IV SCH (09:32)
[2021-09-08 13:51] VITALS: BP 129/85
[2021-09-08 16:52] VITALS: BP 122/79
[2021-09-08 21:27] LABS: Amphetamine Screen, Urine NEGATIVE (NEGATIVE); Barbiturate Scree,Urine NEGATIVE (NEGATIVE); Benzodiazephine Screen, Urine NEGATIVE (NEGATIVE); Cannabinoid Screen, Urine NEGATIVE (NEGATIVE); Cocaine Screen, Urine NEGATIVE (NEGATIVE); Opiate Scree,Urine NEGATIVE (NEGATIVE); Phencyclidine Screen, Urine NEGATIVE (NEGATIVE)
[2021-09-08 22:00] VITALS: BP 131/84
[2021-09-09] MEDS: D5W/SOD CHLO 0.9% 1,000 ML IV SCH ×2 (02:57→16:40)
[2021-09-09 05:00] VITALS: BP 104/74
[2021-09-09] MEDS: SUCRALFATE 1 GM TAB PO SCH ×4 (06:40→22:54)
[2021-09-09 08:15] VITALS: BP 121/77
[2021-09-09] MEDS: PANTOPRAZOLE 40 MG/10 ML VIAL INJ IV SCH (10:10)
[2021-09-09] MEDS ORDERED: ACETAMINOPHEN 325 MG TAB PO PRN (11:45)
[2021-09-09 13:00] VITALS: BP 112/75
[2021-09-09 18:09] VITALS: BP 117/79
[2021-09-10] VITALS (7 sets, daily range): BP systolic 100–127; BP diastolic 52–76
[2021-09-10] MEDS: SUCRALFATE 1 GM TAB PO SCH ×4 (06:15→22:00)
[2021-09-10] MEDS: PANTOPRAZOLE 40 MG/10 ML VIAL INJ IV SCH (13:01)
[2021-09-10] MEDS ORDERED: SODIUM CHLORIDE LOCK 0 ML ONE (14:50)
[2021-09-10] MEDS ORDERED: LIDOCAINE VISCOUS 2% 15ML UD ONE (14:50)
[2021-09-10] MEDS ORDERED: diphenhdrAMINE HCL 50 MG/1 ML VL ONE (14:51)
[2021-09-10] MEDS ORDERED: fentaNYL CITRATE 100 MCG/2 ML VL ONE (14:51)
[2021-09-10] MEDS ORDERED: MIDAZOLAM HCL 5 MG/ML-1ML VIAL ONE (14:51)
[2021-09-10] MEDS ORDERED: MORPHINE SULFATE INJ 2 MG/ml SYRG IV ONE (15:00)
[2021-09-10] MEDS: D5W/SOD CHLO 0.9% 1,000 ML IV SCH ×2 (15:24→20:59)
[2021-09-10] MEDS ORDERED: MORPHINE SULFATE INJ 2 MG/ml SYRG IV PRN (20:30)
[2021-09-11 04:56] VITALS: BP 113/82
[2021-09-11 05:40] LABS: Basophils # (auto) 0.1 10 ^3/uL (0-0.2); Eosinophils # (auto) 0 10 ^3/uL (0-0.8); Eosinophils % (auto) 0.5 % (0.0-7.0); Hematocrit 39.5 % (41.0-53.0); Hemoglobin 13.1 g/dL (13.5-17.5); Lymphocytes # (auto) 1.7 10 ^3/uL (0.4-5.4); Lymphocytes % (auto) 18.1 % (10.0-50.0); Mean Corpuscular Hemoglobin 32.2 pg (28.0-32.0); Mean Corpuscular Hgb Conc. 33.3 g/dL (32.0-36.0); Mean Corpuscular Volume 96.7 fL (80.0-100.0); Monocytes # (auto) 1.6 10 ^3/uL (0-1.3); Monocytes % (auto) 16.9 % (0.0-12.0); Neutrophils # (auto) 5.9 10 ^3/uL (1.6-8.6); Neutrophils % (auto) 63.5 % (37.0-80.0); Red Blood Cells 4.08 10^6/uL (4.5-5.90); Red Cell Distribution Width 14.8 % (11.8-14.3); White Blood Cell 9.3 10^3/uL (4.4-10.8)
[2021-09-11 06:14] LABS: Calcium 8.6 mg/dL (8.5-10.1); Potassium 3.9 mmol/L (3.5-5.1)
[2021-09-11 06:16] LABS: BUN/Creatinine Ratio 9.6
[2021-09-11] MEDS: SUCRALFATE 1 GM TAB PO SCH ×3 (06:24→22:00)
[2021-09-11] MEDS ORDERED: METOPROLOL TARTRATE 1MG/1ML-5ML VIAL IV ONE ×2 (09:00→18:30)
[2021-09-11] MEDS: PANTOPRAZOLE 40 MG/10 ML VIAL INJ IV SCH (10:00)
[2021-09-11] MEDS ORDERED: IOHEXOL 350 MG/ML 100ML IJ ONE (10:33)
[2021-09-11] MEDS: D5W/SOD CHLO 0.9% 1,000 ML IV SCH ×2 (11:16→23:50)
[2021-09-11 15:51] VITALS: BP 104/65
[2021-09-11] MEDS ORDERED: MORPHINE SULFATE INJ 2 MG/ml SYRG IV ONE (20:00)
[2021-09-11 22:00] VITALS: BP 115/65
[2021-09-12] MEDS: METOPROLOL TARTRATE 1MG/1ML-5ML VIAL IV SCH ×4 (03:18→14:00)
[2021-09-12 05:00] VITALS: BP 118/65
[2021-09-12 07:00] VITALS: BP 120/66
[2021-09-12] MEDS: SUCRALFATE 1 GM TAB PO SCH ×2 (07:21→11:27)
[2021-09-12] MEDS: PANTOPRAZOLE 40 MG/10 ML VIAL INJ IV SCH (11:27)
[2021-09-12] MEDS: D5W/SOD CHLO 0.9% 1,000 ML IV SCH (11:28)
[2021-09-12 13:00] VITALS: BP 118/66
== END 2021-09-12 16:34 | disposition left against medical advice (07) | DRG 253 ==
LOC: ER 18:01 → OVERFLOW 21:48 → EAST 23:30
PROVIDERS: ADMIT Nurse Practitioner; ATTEND Family Medicine
PROC: 05HY33Z Insertion of Infusion Device into Upper Vein, Percutaneous Approach (ICD-10-PCS; principal; 2021-09-10)
DX: K92.2 Gastrointestinal hemorrhage, unspecified (principal); I82.412 Acute embolism and thrombosis of left femoral vein; E44.0 Moderate protein-calorie malnutrition; C34.90 Malignant neoplasm of unspecified part of unspecified bronchus or lung; I31.3 Pericardial effusion (noninflammatory); J44.1 Chronic obstructive pulmonary disease with (acute) exacerbation; I82.442 Acute embolism and thrombosis of left tibial vein; I12.9 Hypertensive chronic kidney disease with stage 1 through stage 4 chronic kidney disease, or unspecified chronic kidney disease; Z53.29 Procedure and treatment not carried out because of patient's decision for other reasons; Z20.822 Contact with and (suspected) exposure to COVID-19; M25.512 Pain in left shoulder; R00.0 Tachycardia, unspecified; Z53.9 Procedure and treatment not carried out, unspecified reason; N18.9 Chronic kidney disease, unspecified; Z85.118 Personal history of other malignant neoplasm of bronchus and lung; Z86.718 Personal history of other venous thrombosis and embolism; Z79.01 Long term (current) use of anticoagulants; Z87.891 Personal history of nicotine dependence; Z68.23 Body mass index [BMI] 23.0-23.9, adult; Z71.6 Tobacco abuse counseling
CPT/HCPCS: 36415; 70450; 70496; 70498; 73030; 76700; 80048; 80053; 80307; 82140; 82270; 84484; 85025; 85610; 85730; 86850; 86900; 86901; 93306; 95819; 96360; C9113; G0378; J2250; J2405; J7042